=== PATIENT | male | born 1990 | race Caucasian/White ===

== ENCOUNTER 2020-02-08 02:38 | Emergency (ER) | payer BC, SELFPAY ==
--- NOTE | ~2020-02-08 | CT_ITS ---
EXAMINATION: CT lumbar spine wo [facility] EXAM DATE: 02/08/2020 03:31 INDICATION: Flank pain after fall, initial encounter. TECHNIQUE: Spiral CT lumbar spine was performed without contrast. Axial, coronal and sagittal images of the lumbar spine were reviewed. The dose-length product (DLP) for this examination was 952.64 mGy- cm. The exposure was tailored according to patient size (auto mA exposure control), and iterative re construction (ASIR) was used as additional dose reduction technique. There is no prior study for mindy [place]. FINDINGS: Mild symmetric bilateral symmetric sacroiliitis. There is no evidence of acute lumbar fracture. The re is no disc space widening or traumatic vertebral body subluxation suspected. Paraspinal soft tiss ue is unremarkable. There is 3 mm retrolisthesis L5 on S1 with mild to moderate loss of this disc he ight. No more than mild central canal or neural foraminal stenosis at any given level. A detailed le selma by level evaluation of spondylosis can be added as addendum if requested. IMPRESSION: 1. Mild chronic bilateral symmetric sacroiliitis. 2. Mild lumbar spondylosis. Reviewed, dictated and finalized at location D. [facility]
[2020-02-08 02:45] VITALS: BP 148/83; PULSE 57; RESP 18; TEMP 36.7; O2SAT 99
[2020-02-08] MEDS: KETOROLAC (*BKC) 60 MG/2 ML VIAL IM (03:41)
[2020-02-08] MEDS: HYDROmorphone HCL INJ (*CRX) 1 MG/ML SYR IM (03:46)
--- NOTE | 2020-02-08 03:55 | ED.GENADULT ---
HPI - General Adult General Chief complaint: Back Pain/Injury Stated complaint: fell; back injury Time Seen by Provider: 02/08/20 02:47 History of Present Illness HPI narrative: Patient 29-year-old gentleman who presents [facility] with chief complaint of back pain. Patient reports that he was walking down steps and slipped on a pad that his dog uses. Patient states he fell backwards struck his head and then also struck his back. The patient states he has lumbar pain that radiates down his right leg. Patient denies numbness or tingling denies paresthesias denies bowel or bladder dysfunction denies foot drop. Related Data Allergies Allergy/AdvReac Type Severity Reaction Status Date / Time erythromycin base Allergy Mild Verified 06/17/15 15:11 sulfisoxazole Allergy Mild Verified 06/17/15 15:11 cefaclor Allergy Unknown Verified 02/14/17 21:20 Review of Systems Review of Systems: Narrative: A 10 system review of systems was completed on the patient and is negative except for what is stated in the HPI. Nursing and ancillary documentation was reviewed. PMFSH Social History Social History Alcohol intake: never Comments Patient has history of chronic back pain Social history the patient denies drinking Exam Narrative: Exam Narrative: GENERAL: Well-appearing, well-nourished, and in no acute distress. HEAD: Normocephalic, atraumatic. EYES: PERRLA and EOMI. ENT: Nares clear, no rhinorrhea or epistaxis. Mucous membranes moist. NECK: Supple. CHEST: Clear to auscultation. No respiratory distress. HEART: Regular rate and rhythm. No murmur heard. Normal peripheral pulses. ABDOMEN: Soft, nontender, nondistended, normal active bowel sounds. EXTREMITIES: Normal range of motion. No edema. SKIN: Warm, dry, no rash. NEURO: No focal deficits. Alert and oriented x3. There is no saddle anesthesia, no foot drop PSYCH: Normal mood and affect. Back: There is tenderness to palpation of the lumbar spine and there is no bony step-off noted Course Course Emergency Course: Due to the trauma related injury a CT scan was obtained of the lumbar spine which showed no evidence of fracture. CT scan showed no evidence of fracture there were some mild degenerative disc bulge at L4-5 and L5 and S1 but there is no stenosis or canal foraminal narrowing Vital Signs Vital signs: Vital Signs Temperature 36.7 C 02/08/20 02:45 Pulse Rate 57 L 02/08/20 02:45 Respiratory Rate 18 02/08/20 02:45 Blood Pressure 148/83 H 02/08/20 02:45 Pulse Oximetry 99 02/08/20 02:45 Temperature 36.7 C 02/08/20 02:45 Pulse Rate 57 L 02/08/20 02:45 Respiratory Rate 18 02/08/20 02:45 Blood Pressure 148/83 H 02/08/20 02:45 Pulse Oximetry 99 02/08/20 02:45 Medical Decision Making Vital Signs Vital Signs: Vital Signs Temperature 36.7 C 02/08/20 02:45 Pulse Rate 57 L 02/08/20 02:45 Respiratory Rate 18 02/08/20 02:45 Blood Pressure 148/83 H 02/08/20 02:45 Pulse Oximetry 99 02/08/20 02:45 Temperature 36.7 C 02/08/20 02:45 Pulse Rate 57 L 02/08/20 02:45 Respiratory Rate 18 02/08/20 02:45 Blood Pressure 148/83 H 02/08/20 02:45 Pulse Oximetry 99 02/08/20 02:45 Discharge Plan Discharge Clinical Impression: Strain of lumbar region Qualifiers: Encounter type: initial encounter Qualified Code(s): S39.012A - Strain of muscle, fascia and tendon of lower back, initial encounter Patient Disposition: Home, Self-Care Condition: Stable Instructions: Antibiotic Form, Acute Low Back Pain (ED), Lumbar Radiculopathy (ED) Prescriptions: New cyclobenzaprine 10 mg tablet 10 mg PO TID PRN (Reason: muscle spasm) Qty: 21 RF: 0 ibuprofen 800 mg tablet 800 mg PO TID PRN (Reason: pain) Qty: 21 RF: 0 Follow-up/Referrals: PHYSICIAN,AUTOMATIC DISPENSER MECHANIC [Primary Care Provider] - Faustino Mendez MD [Physician] - Time of Disposition: 04:13
[2020-02-08 04:47] VITALS: BP 160/81; PULSE 59; RESP 18; O2SAT 99
== END 2020-02-08 04:49 | disposition home or self-care (01) ==
PROVIDERS: Emergency Provider Emergency Medicine
DX: S39.012A Strain of muscle, fascia and tendon of lower back, initial encounter (principal); W10.9XXA Fall (on) (from) unspecified stairs and steps, initial encounter
CPT/HCPCS: 72131; 96372; 99284; J1170; J1885